=== PATIENT | female | born 1930 | race Caucasian/White ===

== ENCOUNTER 2017-04-13 09:21 | Emergency (ER) | payer OTHER ==
[~2017-04-13] VITALS: Ht 162.6 cm; Wt 77.1 kg
[2017-04-13 09:25] VITALS: Ht 162.6 cm; Wt 77.1 kg
[2017-04-13 10:35] VITALS: BP 153/64
== END 2017-04-13 11:16 | disposition home or self-care (01) ==
LOC: ED 09:21
DX: S09.90XA Unspecified injury of head, initial encounter (principal); I10 Essential (primary) hypertension; W17.89XA Other fall from one level to another, initial encounter; Y93.89 Activity, other specified; Y92.89 Other specified places as the place of occurrence of the external cause; Y99.8 Other external cause status

== ENCOUNTER 2017-04-22 17:23 | Inpatient (IN) | payer OTHER ==
[~2017-04-22] VITALS: Ht 170.2 cm; Wt 64.0 kg
[2017-04-22 18:12] VITALS: Ht 170.2 cm; Wt 64.0 kg
[2017-04-22 19:34] LABS: BASOPHIL % 0 % (0-2); PLATELET COUNT 246 x10^3mcL (130-400); RED CELL DISTRIBUTION WIDTH 14.3 % (11.5-14.5)
[2017-04-22 19:54] LABS: CALCIUM 9.8 mg/dL (8.5-10.1); CARBON DIOXIDE 21.6 mmol/L (21-32); CHLORIDE SERUM 104 mmol/L (98-107); CREATININE SERUM 1.3 mg/dL (0.6-1.0); GLUCOSE SERUM 104 mg/dL (74-106); POTASSIUM SERUM 3.5 mmol/L (3.5-5.1); SODIUM SERUM 140 mmol/L (136-145)
[2017-04-22 20:06] LABS: ALBUMIN 3.6 g/dL (3.4-5.0); ALKALINE PHOSPHATASE 123 U/L (46-116); ALT/SGPT 40 U/L (14-59); AST/SGOT 50 U/L (15-37); BILIRUBIN TOTAL 0.41 mg/dL (0.20-1.00); TOTAL PROTEIN, SERUM 7.4 g/dL (6.4-8.2)
[2017-04-23] VITALS (7 sets, daily range): BP systolic 120–170; BP diastolic 53–67
[2017-04-23 01:06] LABS: UA SPECIFIC GRAVITY 1.025 (1.005-1.035); microscopic required? YES; urine erythrocyte NEGATIVE (NEGATIVE)
[2017-04-23 02:09] LABS: T3 TOTAL 0.73 ng/mL
[2017-04-23 03:41] LABS: CHOLESTEROL/HDL RATIO 2.8; MAGNESIUM 2.2 mg/dL (1.8-2.4); PHOSPHOROUS 2.6 mg/dL (2.5-4.9)
[2017-04-23 03:49] LABS: FREE T4 1.21 ng/dL (0.76-1.46); FREE THYROXINE INDEX 2.7 ug/dL (1.4-4.5); T4(THYROXINE) 7.5 ug/dL (4.7-13.3)
[2017-04-23 06:48] LABS: BASOPHIL % 0.4 % (0-2); PLATELET COUNT 219 x10^3mcL (130-400)
[2017-04-23 07:08] LABS: RED CELL DISTRIBUTION WIDTH 14.6 % (11.5-14.5)
[2017-04-23 08:14] LABS: CALCIUM 8.6 mg/dL (8.5-10.1); CARBON DIOXIDE 23.2 mmol/L (21-32); CHLORIDE SERUM 107 mmol/L (98-107); CREATININE SERUM 1.1 mg/dL (0.6-1.0); GLUCOSE SERUM 98 mg/dL (74-106); POTASSIUM SERUM 3.4 mmol/L (3.5-5.1); SODIUM SERUM 142 mmol/L (136-145)
[2017-04-24 06:33] VITALS: BP 159/77
[2017-04-24 07:15] LABS: BASOPHIL % 0.1 % (0-2); PLATELET COUNT 242 x10^3mcL (130-400)
[2017-04-24 07:38] LABS: RED CELL DISTRIBUTION WIDTH 14.9 % (11.5-14.5)
[2017-04-24 08:41] LABS: CALCIUM 8.7 mg/dL (8.5-10.1); CHLORIDE SERUM 107 mmol/L (98-107); CREATININE SERUM 0.8 mg/dL (0.6-1.0); GLUCOSE SERUM 121 mg/dL (74-106); MAGNESIUM 1.6 mg/dL (1.8-2.4); PHOSPHOROUS 2.4 mg/dL (2.5-4.9); POTASSIUM SERUM 3.1 mmol/L (3.5-5.1); SODIUM SERUM 141 mmol/L (136-145)
[2017-04-24 09:35] VITALS: BP 155/74
[2017-04-24 14:15] VITALS: BP 132/54
[2017-04-24 16:43] LABS: RED BLOOD CELLS 3.68 M/mm3 (4.10-5.10)
[2017-04-24 16:52] LABS: IRON 15 ug/dL (50-170); TOTAL IRON BINDING CAPACITY 215 ug/dL (250-450)
[2017-04-24 17:17] VITALS: BP 158/60
[2017-04-24 20:00] VITALS: BP 151/74
[2017-04-25] MEDS ORDERED: SEROQUEL25 MG PO (00:18)
[2017-04-25 06:30] VITALS: BP 168/74
[2017-04-25 07:28] LABS: CALCIUM 8.7 mg/dL (8.5-10.1); CARBON DIOXIDE 20.9 mmol/L (21-32); CHLORIDE SERUM 111 mmol/L (98-107); CREATININE SERUM 0.9 mg/dL (0.6-1.0); GLUCOSE SERUM 119 mg/dL (74-106); MAGNESIUM 1.6 mg/dL (1.8-2.4); PHOSPHOROUS 2.4 mg/dL (2.5-4.9); POTASSIUM SERUM 3.9 mmol/L (3.5-5.1); SODIUM SERUM 144 mmol/L (136-145)
[2017-04-25 08:22] LABS: BASOPHIL % 0.3 % (0-2); PLATELET COUNT 241 x10^3mcL (130-400)
[2017-04-25 08:23] LABS: RED CELL DISTRIBUTION WIDTH 15.2 % (11.5-14.5)
[2017-04-25 11:05] VITALS: BP 161/70
[2017-04-25 17:00] VITALS: BP 127/76
[2017-04-25 20:22] VITALS: BP 156/47
[2017-04-26 05:15] VITALS: BP 173/67
[2017-04-26 06:33] VITALS: BP 168/67
[2017-04-26 07:40] LABS: BASOPHIL % 0.4 % (0-2); PLATELET COUNT 258 x10^3mcL (130-400)
[2017-04-26 07:41] LABS: RED CELL DISTRIBUTION WIDTH 15.1 % (11.5-14.5)
[2017-04-26 07:58] LABS: CALCIUM 8.9 mg/dL (8.5-10.1); CARBON DIOXIDE 23.4 mmol/L (21-32); CHLORIDE SERUM 111 mmol/L (98-107); CREATININE SERUM 0.8 mg/dL (0.6-1.0); GLUCOSE SERUM 105 mg/dL (74-106); MAGNESIUM 1.6 mg/dL (1.8-2.4); PHOSPHOROUS 3.3 mg/dL (2.5-4.9); POTASSIUM SERUM 3.4 mmol/L (3.5-5.1); SODIUM SERUM 145 mmol/L (136-145)
[2017-04-26 08:50] VITALS: BP 167/65
[2017-04-26 09:59] VITALS: BP 126/60
[2017-04-26 17:43] VITALS: BP 161/63
[2017-04-26 21:17] VITALS: BP 155/58
[2017-04-27] VITALS (7 sets, daily range): BP systolic 127–169; BP diastolic 40–72
[2017-04-27 07:38] LABS: BASOPHIL % 0.4 % (0-2); PLATELET COUNT 240 x10^3mcL (130-400)
[2017-04-27 07:45] LABS: CALCIUM 8.9 mg/dL (8.5-10.1); CARBON DIOXIDE 22.4 mmol/L (21-32); CHLORIDE SERUM 111 mmol/L (98-107); CREATININE SERUM 1.1 mg/dL (0.6-1.0); GLUCOSE SERUM 116 mg/dL (74-106); MAGNESIUM 1.6 mg/dL (1.8-2.4); PHOSPHOROUS 3.8 mg/dL (2.5-4.9); POTASSIUM SERUM 4.3 mmol/L (3.5-5.1); SODIUM SERUM 144 mmol/L (136-145)
[2017-04-28 03:04] LABS: CARBON DIOXIDE 24.1 mmol/L (21-32); CHLORIDE SERUM 111 mmol/L (98-107); CREATININE SERUM 1.4 mg/dL (0.6-1.0); GLUCOSE SERUM 123 mg/dL (74-106); MAGNESIUM 1.8 mg/dL (1.8-2.4); PHOSPHOROUS 5.6 mg/dL (2.5-4.9); POTASSIUM SERUM 5.2 mmol/L (3.5-5.1); SODIUM SERUM 145 mmol/L (136-145)
[2017-04-28 03:16] LABS: BASOPHIL % 0.3 % (0-2); PLATELET COUNT 216 x10^3mcL (130-400)
[2017-04-28 03:17] LABS: RED CELL DISTRIBUTION WIDTH 15.3 % (11.5-14.5)
[2017-04-28 06:00] VITALS: BP 135/58
[2017-04-28 09:33] VITALS: BP 140/59
[2017-04-28 13:37] VITALS: BP 140/61
[2017-04-28 16:57] VITALS: BP 141/61
[2017-04-28 18:46] LABS: CALCIUM 8.7 mg/dL (8.5-10.1); CARBON DIOXIDE 23.5 mmol/L (21-32); CHLORIDE SERUM 109 mmol/L (98-107); CREATININE SERUM 1.1 mg/dL (0.6-1.0); GLUCOSE SERUM 132 mg/dL (74-106); POTASSIUM SERUM 4.2 mmol/L (3.5-5.1); SODIUM SERUM 143 mmol/L (136-145)
[2017-04-28 21:04] VITALS: BP 151/60
[2017-04-29 06:00] VITALS: BP 104/47
[2017-04-29 07:37] LABS: BASOPHIL % 0.6 % (0-2); PLATELET COUNT 229 x10^3mcL (130-400)
[2017-04-29 07:49] LABS: CALCIUM 8.6 mg/dL (8.5-10.1); CARBON DIOXIDE 24.4 mmol/L (21-32); CHLORIDE SERUM 109 mmol/L (98-107); CREATININE SERUM 0.9 mg/dL (0.6-1.0); GLUCOSE SERUM 95 mg/dL (74-106); PHOSPHOROUS 3.4 mg/dL (2.5-4.9); POTASSIUM SERUM 3.8 mmol/L (3.5-5.1); SODIUM SERUM 143 mmol/L (136-145)
[2017-04-29 09:42] VITALS: BP 105/49
[2017-04-29 13:35] VITALS: BP 108/53
[2017-04-29 17:45] VITALS: BP 141/57
[2017-04-29 21:21] VITALS: BP 108/71
[2017-04-30 05:42] VITALS: BP 113/56
[2017-04-30 07:16] LABS: BASOPHIL % 0.5 % (0-2); PLATELET COUNT 285 x10^3mcL (130-400)
[2017-04-30 07:19] LABS: RED CELL DISTRIBUTION WIDTH 15.5 % (11.5-14.5)
[2017-04-30 08:05] LABS: CALCIUM 8.8 mg/dL (8.5-10.1); CARBON DIOXIDE 22.6 mmol/L (21-32); CHLORIDE SERUM 111 mmol/L (98-107); CREATININE SERUM 0.9 mg/dL (0.6-1.0); GLUCOSE SERUM 104 mg/dL (74-106); MAGNESIUM 1.8 mg/dL (1.8-2.4); PHOSPHOROUS 3.1 mg/dL (2.5-4.9); SODIUM SERUM 145 mmol/L (136-145)
[2017-04-30 09:44] VITALS: BP 114/60
[2017-04-30 13:16] VITALS: BP 129/67
[2017-04-30 17:14] VITALS: BP 133/52
[2017-04-30 21:04] VITALS: BP 111/50
[2017-05-01 05:22] VITALS: BP 123/53
[2017-05-01 09:46] VITALS: BP 147/76
[2017-05-01 14:34] VITALS: BP 145/58
[2017-05-01 18:21] VITALS: BP 144/72
[2017-05-01 21:10] VITALS: BP 128/65
[2017-05-02 05:47] VITALS: BP 137/59
[2017-05-02 10:02] VITALS: BP 147/84
[2017-05-02] MEDS ORDERED: D-10001 TAB PO (14:49)
[2017-05-02] MEDS ORDERED: XARELTO15 M1 PO (14:49)
[2017-05-02] MEDS ORDERED: NOR10 PO (14:49)
[2017-05-02] MEDS ORDERED: BUS5 PO (14:49)
[2017-05-02] MEDS ORDERED: THERA TABS1 TAB PO (14:49)
[2017-05-02] MEDS ORDERED: COZ50 PO (14:49)
[2017-05-02] MEDS ORDERED: BAY PO (14:49)
[2017-05-02] MEDS ORDERED: SYN75 PO (14:49)
[2017-05-02] MEDS ORDERED: COR6 PO (14:49)
[2017-05-02 15:30] VITALS: BP 139/59
[2017-05-02 15:32] VITALS: BP 139/59
== END 2017-05-02 17:57 | DRG 56 ==
LOC: ED 17:23 → DU 22:14 → MU 22:14 → DU 23:46 → MU 04-25 07:38 → DU 04-27 14:23 → MU 05-01 10:37
PROVIDERS: Emergency Medicine; Family Medicine; Internal Medicine Gastroenterology; Student in an Organized Health Care Education/Training Program
DX: G30.9 Alzheimer's disease, unspecified (principal); N17.0 Acute kidney failure with tubular necrosis; I26.99 Other pulmonary embolism without acute cor pulmonale; R53.2 Functional quadriplegia; N39.0 Urinary tract infection, site not specified; F02.80 Dementia in other diseases classified elsewhere, unspecified severity, without behavioral disturbance, psychotic disturbance, mood disturbance, and anxiety; S09.90XA Unspecified injury of head, initial encounter; E86.0 Dehydration; E03.9 Hypothyroidism, unspecified; E87.6 Hypokalemia; E83.39 Other disorders of phosphorus metabolism; D63.8 Anemia in other chronic diseases classified elsewhere; E83.42 Hypomagnesemia; Z68.26 Body mass index [BMI] 26.0-26.9, adult; Y30.XXXA Falling, jumping or pushed from a high place, undetermined intent, initial encounter; Y93.89 Activity, other specified; Y92.012 Bathroom of single-family (private) house as the place of occurrence of the external cause; Z66 Do not resuscitate; Z86.73 Personal history of transient ischemic attack (TIA), and cerebral infarction without residual deficits
CPT/HCPCS: 83880; 84439; 87046; 87046-59; 97110-GP; 97116-GP; 97530-GP; J1644; J1885; J1956; J2060; J2916; J3480; J3486; J3490; J7030; J7040; J7512; J7620; Q0092; Q9967